=== PATIENT | female | born 1965 | race Caucasian/White ===

== ENCOUNTER → 2023-03-29 | Outpatient (CLI) | payer OTHER ==
[~2023-03-29] MED LIST: ALPR.5; IBUP800; IMITREX; SERT100; SUMA25 PO; VICODIN 5-3001 EACH PO
== END | disposition home or self-care (01) ==
LOC: LAB SHORT 15:40 → LAB 15:40
DX: R30.0 Dysuria (principal)
CPT/HCPCS: 87086

== ENCOUNTER 2024-10-28 08:54 | Day surgery (SDC) | payer OTHER ==
[2024-10-28] VITALS (19 sets, daily range): BP systolic 78–135; BP diastolic 45–89
[~2024-10-28] VITALS: Ht 157.5 cm; Wt 76.5 kg
[~2024-10-28 08:54] MED LIST changes: +Crestor40 MG PO; +Lactated Ringer's 1,000 ML IV SCH; +MONT10T PO; +SERT100 PO
[2024-10-28] MEDS ORDERED: Imitrex100 MG PO (09:48)
--- NOTE | 2024-10-28 09:57 | NUR ---
History, Chart, Medications and Allergies reviewed before start of procedure. Pre-Op teaching done. Pt verbalizes understanding. Ambulatory in Day Surgery. Patient States Post-Procedure ride home has been arranged. Patient confirms NPO status and agrees with scheduled surgery. TEMP 100.8, DENIES FEELING SICK. DR. GONZALEZ INFORMED.
[2024-10-28] MEDS ORDERED: Midazolam HCl 1MG / ML 2ML Vial ONE ×2 (10:16→10:46)
[2024-10-28] MEDS ORDERED: propofoL 20 ML IV ONE (10:17)
--- NOTE | 2024-10-28 10:44 | NUR ---
10/28/24 1044 Rafa Reid CONFIRMED AND REVIEWED H&P, MEDCICATIONS, ALLERGIES, MEDICAL HISTORY, RESPIRATORY HISTORY, VITAL SIGNS, 3-LEAD EKG, CONSENTS, AND PHYSICIAN ORDERS. PATIENT CONFIRMS NPO STATUS AND AGREES WITH SCHEDULED PROCEDURE. MONITOR INTACT WITH CONTINUOUS PULSE OXIMETRY, CAPNOGRAPHY, 3-LEAD EKG, INTERMITTENT BP. SUPPLEMENTAL O2 TO BE TITRATED THROUGHOUT PROCEDURE TO MAINTAIN O2 SATURATION ABOVE 90%. PATIENT DETERMINED TO BE ASA APPROPRIATE FOR PROPOFOL SEDATION PRIOR TO START OF PROCEDURE BY DR. GONZALEZ
--- NOTE | 2024-10-28 11:36 | NUR ---
Patient up to Ambulate independently. Gait steady. Discharge instructions reviewed with patient. Patient verbalizes understanding. Copy given to patient to take home. Patient States Post-Procedure ride home has been arranged. Discharged via wheelchair to private car for ride home. PT TOLERATING PO. REPORTS READY TO GO HOME.
== END 2024-10-28 11:36 | disposition home or self-care (01) ==
LOC: ORSCMMR 08:54 → ORD 09:30 → ORSCMMR 11:36
PROVIDERS: Internal Medicine Gastroenterology
PROC: 0DBL8ZX Excision of Transverse Colon, Via Natural or Artificial Opening Endoscopic, Diagnostic (ICD-10-PCS; principal; 2024-10-28 09:30)
DX: Z12.11 Encounter for screening for malignant neoplasm of colon (principal); K63.5 Polyp of colon; F32.A Depression, unspecified; E78.00 Pure hypercholesterolemia, unspecified; J45.909 Unspecified asthma, uncomplicated; Z79.899 Other long term (current) drug therapy
CPT/HCPCS: 88305; J2250; J2704; J7120

== ENCOUNTER → 2025-03-02 | Outpatient (CLI) | payer OTHER ==
[~2025-03-02] MED LIST changes: +Imitrex100 MG PO; -Lactated Ringer's 1,000 ML IV SCH
== END ==
LOC: LAB SHORT 14:39 → LAB 14:39
DX: N39.0 Urinary tract infection, site not specified (principal)
CPT/HCPCS: 87077; 87086; 87186